=== PATIENT | female | born 1990 | race Caucasian/White ===

== ENCOUNTER 2019-03-07 00:25 | Emergency (ER) | payer MEDICAID ==
[~2019-03-07] VITALS: Ht 170.2 cm; Wt 63.7 kg
[~2019-03-07 00:25] MED LIST: CYCL10TA7 PO; NAPR-985 PO
[2019-03-07 00:28] VITALS: BP 111/70; PULSE 79; RESP 16; Ht 170.2 cm; Wt 63.7 kg
[2019-03-07] MEDS ORDERED: IBUPROFEN 600 MG TAB PO ONE (03:00)
[2019-03-07] MEDS ORDERED: CYCLOBENZAPRINE 10 MG TAB PO ONE (03:00)
== END 2019-03-07 03:43 | disposition home or self-care (01) ==
LOC: FTE 00:25
DX: M54.42 Lumbago with sciatica, left side (principal); M54.41 Lumbago with sciatica, right side
CPT/HCPCS: Z7610 ×2; 99283